=== PATIENT | male | born 1965 | race American Indian/Alaskan Native ===

== ENCOUNTER 2020-06-10 20:58 | Emergency (ER) | payer OTHER ==
[~2020-06-10] VITALS: Ht 185.4 cm; Wt 104.3 kg
[~2020-06-10 20:58] MED LIST: HYDROCODONE-APA1 TA1 PO
[2020-06-10 21:19] LABS: ABSOLUTE BASOPHILS 0.1 thou/uL (0.0-0.2); ABSOLUTE EOSINOPHILS 0.2 thou/uL (0.0-0.7); ABSOLUTE LYMPHOCYTES 3.7 thou/uL (0.8-5.3); ABSOLUTE MONOCYTES 0.8 thou/uL (0.0-1.2); ABSOLUTE NEUTROPHILS 9.9 thou/uL (1.6-8.1); BASOPHILS 0.7 %; EOSINOPHILS 1.5 %; HEMATOCRIT 49.6 % (42.0-52.0); HEMOGLOBIN 17.4 gm/dL (14.0-18.0); LYMPHOCYTES 25.2 %; MCH 30.8 pg (26.0-34.0); MCHC 35.1 g/dL (28.0-37.0); MCV 87.7 fL (80.0-100.0); MONOCYTES 5.6 %; MPV 7.5 fl. (7.2-11.1); NUCLEATED RBCS 0 /100WBC; PLATELET COUNT* 318 thou/uL (150-400); RBC 5.66 mil/uL (4.50-6.00); RDW-CV 13.4 % (10.5-14.5); WBC 14.7 thou/uL (4.0-11.0)
[2020-06-10 21:28] LABS: CREATININE 1.4 mg/dL (0.6-1.3); POTASSIUM 3.2 mmol/L (3.5-5.1)
[2020-06-10 21:31] LABS: APTT 21.5 Seconds (25.0-31.3); PROTIME 10.7 Seconds (9.20-11.50)
[2020-06-10] MEDS ORDERED: PREDNISONE 20 M20 M1 PO (21:31)
[2020-06-10 21:42] LABS: ALBUMIN 3.5 g/dL (3.4-5.0); CK-MB MASS 1.2 ng/mL (<0.5-3.6); MAGNESIUM 1.6 mg/dL (1.8-2.4); TOTAL BILIRUBIN 0.5 mg/dL (<0.1-1.0); TOTAL PROTEIN 6.5 g/dL (6.4-8.2)
[2020-06-10 22:39] VITALS: BP 99/63
--- NOTE | 2020-06-11 10:53 | EKG ---
[place] [address] ELECTROCARDIOGRAM REPORT Name: JULIET LATHAM Room: [facility]#: [id number] Admission: 06/10/20 Attend Phys: Discharge: 06/10/20 Date of : 69 Date of Service: 06/10/202056 Report #: [id number] THIS REPORT FOR: //name// [facility] ED Test Date: 2020-06-10 Test Time: 20:57:33 Pat Name: JULIET LATHAM Department: Room: Gender: M Principal Process Engineer: BENNETT : 1965 Requested By: Beau Morley Order Number: [id number] MD: Sami Mcdonnell Measurements Intervals [place] Rate: 56 P: 35 [place]: 165 QRS: -74 QRSD: 115 T: 35 QT: 436 QTc: 421 Interpretive Statements Sinus bradycardia Left anterior fascicular block ST elev, probable normal early repol pattern Compared to ECG 04/18/2015 00:54:41 Left anterior fascicular block now present Electronically Signed On 06-11-2020 10:53:02 CDT by Sami Mcdonnell [email or web address] <ELECTRONICALLY SIGNED> By: Sami Mcdonnell MD, FAC 06/11/20 1053 56 56 Sami Mcdonnell MD, FAC /EPI
== END 2020-06-10 23:10 | disposition home or self-care (01) ==
LOC: M.ERS 20:58
PROVIDERS: Family Medicine
DX: L50.9 Urticaria, unspecified (principal)